=== PATIENT | female | born 1975 | race Caucasian/White ===

== ENCOUNTER 2019-12-10 12:09 | Observation (INO) ==
[2019-12-10] MEDS ORDERED: Ringers Solution, Lactated 1,000 ML IVC SCH (12:45)
[2019-12-10] MEDS: Albuterol 2.5 MG/3 ML NEBULIZER IH PRN ×2 (13:20→18:24)
[2019-12-10] MEDS ORDERED: Famotidine 20 MG/2 ML VIAL IVP ONE (14:25)
[2019-12-10] MEDS ORDERED: Acetaminophen IV 1,000 MG/100 ML INFUS..BTL IVPB ONE (14:25)
[2019-12-10] MEDS ORDERED: Scopolamine Patch 1.5 MG PATCH.TD72 TD ONE (14:26)
[2019-12-10] MEDS ORDERED: *HR* OxyCODONE Immed Rel 5 MG TABLET PO PRN (14:27)
[2019-12-10] MEDS ORDERED: *HR* HYDROmorphone (PF) 1 MG/ML SYRINGE IVP PRN (14:27)
[2019-12-10] MEDS ORDERED: *HR* Promethazine 25 MG/ML VIAL IVP PRN (14:27)
[2019-12-10] MEDS ORDERED: *HR* HYDROmorphone 2 MG TABLET PO PRN (14:27)
[2019-12-10] MEDS ORDERED: *HR* Labetalol 20 MG/4 ML SYRINGE IVP PRN (14:36)
[2019-12-10] MEDS ORDERED: Ondansetron 4 MG/2 ML VIAL ONE (15:17)
[2019-12-10] MEDS ORDERED: *HR* Midazolam HCl 2 MG/2 ML VIAL ONE (15:17)
[2019-12-10] MEDS ORDERED: *HR* Propofol 200 MG/20 ML VIAL IVP ONE (15:17)
[2019-12-10] MEDS ORDERED: *HR* Rocuronium Bromide 50 MG/5 ML VIAL ONE (15:17)
[2019-12-10] MEDS ORDERED: Dexamethasone 4 MG/ML VIAL ONE (15:17)
[2019-12-10] MEDS ORDERED: Lidocaine -MPF 4% 5 ML AMPUL ONE (15:17)
[2019-12-10] MEDS ORDERED: *HR* FentaNYL (PF) 100 MCG/2 ML VIAL ONE (15:17)
[2019-12-10] MEDS ORDERED: Lidocaine -MPF 2% 2 ML VIAL ONE (15:17)
[2019-12-10] MEDS ORDERED: Bupivacaine-MPF 0.25% 10 ML VIAL ONE (16:38)
[2019-12-10] MEDS ORDERED: Silver Nitrate Applicator 1 STICK..EA. TP ONE (16:38)
[2019-12-10] MEDS ORDERED: *HR* OxyCODONE/APAP 5/325 TABLET PO ONE (17:44)
[2019-12-10] MEDS ORDERED: Albuterol 2.5 MG/3 ML NEBULIZER ONE (18:22)
[2019-12-10] MEDS ORDERED: Ibuprofen 600 MG TABLET PO PRN (20:19)
[2019-12-10] MEDS ORDERED: Magnesium Oxide 400 MG TABLET PO SCH (20:45)
[2019-12-10] MEDS ORDERED: Primidone 50 MG TABLET PO SCH (21:00)
[2019-12-10] MEDS ORDERED: *HR* Metformin 500 MG TABLET PO SCH (21:00)
[2019-12-11 05:52] VITALS: BP 137/82
[2019-12-11] MEDS ORDERED: Primidone 50 MG TABLET PO SCH (09:00)
[2019-12-11] MEDS ORDERED: Loratadine 10 MG TABLET PO SCH (09:00)
[2019-12-11] MEDS ORDERED: *HR* Metformin 500 MG TABLET PO SCH ×2 (09:00→17:00)
[2019-12-11] MEDS ORDERED: hydroCHLOROthiazide 25 MG TABLET PO SCH (09:00)
[2019-12-11] MEDS ORDERED: NON-FORMULARY MEDICATION 1 EACH EACH (Magnesium 250 MG) PO SCH (21:00)
[2019-12-12] MEDS ORDERED: Magnesium Oxide 400 MG TABLET PO SCH (09:00)
== END 2019-12-11 10:00 | disposition home or self-care (01) ==
LOC: 1NENUOBS 12:09 → SAMDAY 12:09 → 1NENUOBS 20:12
PROVIDERS: ADMIT Obstetrics & Gynecology; ATTEND Obstetrics & Gynecology